=== PATIENT | male | born 1970 | race Caucasian/White ===

== ENCOUNTER → 2019-12-02 14:15 | Outpatient (CLI) | payer MEDICAID, SELFPAY ==
[2019-12-02 14:24] LABS: Basophils # 0.1 K/mm3 (0-0.2); Basophils % 0.6 % (0.1-2.0); Eosinophils # 0.2 K/mm3 (0.0-0.4); Eosinophils % 2.9 % (0.1-12.0); Hematocrit 55.4 % (42.0-52.0); Lymphocytes # 2.5 K/mm3 (0.7-4.5); Lymphocytes % 33.6 % (10-50); Mean Corpuscular HGB Conc 33.7 g/dL (31.8-35.4); Mean Corpuscular Hemoglobin 32.6 pg (27.0-31.2); Mean Corpuscular Volume 96.9 fl (80-94); Mean Platelet Volume 8.4 fl (7.4-10.4); Monocytes # 0.6 K/mm3 (0.1-1.0); Monocytes % 7.5 % (1.7-9.3); Neutrophils # 4.1 K/mm3 (1.8-7.8); Neutrophils % 55.3 % (37.0-80.0); Platelet Count 218 K/mm3 (142-424); Red Blood Count 5.72 M/mm3 (4.60-6.20); Red Cell Distribution Width 14.5 % (11.5-17.5); White Blood Count 7.4 K/mm3 (4.8-10.8)
[2019-12-02 14:26] LABS: Hemoglobin 18.7 g/dL (14.1-18.0)
[2019-12-02 14:27] LABS: Chol/HDL Ratio 6.6 (1-3.5); Cholesterol 236 mg/dl (140-200); HDL Cholesterol 36 mg/dl (40-60); Triglycerides 269 mg/dl (30-150); VLDL Cholesterol 54 mg/dL (0-40)
[2019-12-02 14:38] LABS: Direct LDL Cholesterol 156.43 mg/dL (100-129)
[2019-12-02 14:58] LABS: Prostate Specific Ag Screen 0.7 ng/ml (0.0-4.0)
[2019-12-07 20:01] LABS: Testosterone, Total, LC/MS 810.3 ng/dL (264.0-916.0)
== END ==
PROVIDERS: Visit Provider Family Medicine
DX: E34.9 Endocrine disorder, unspecified (principal)
CPT/HCPCS: 80061; 84402; 84403; 85025; G0103

== ENCOUNTER → 2020-04-26 14:32 | Outpatient (CLI) | payer MEDICAID, SELFPAY ==
--- NOTE | 2020-04-26 14:32 | MR_ITS ---
PROCEDURE: MR THORACIC SPINE WO CON CLINICAL INDICATION: back pain MID TO UPPER BACK PAIN BETWEEN SHOULDER BLADES X6 MONTHS. NO PRIOR COMPARISON: No exams were available for comparison TECHNIQUE: Routine multiplanar multi echo sequences are performed without gadolinium enhancement. FINDINGS: There is normal alignment. No fracture or malalignment. No bony destructive process. Mild degenerative disc disease is present with decrease in the disc spaces and disc desiccation. There is endplate irregularity T10-T11 and T12. At T6-T7, there is a small lobular disc osteophyte complex which is right and left paracentral more prominent in the left paracentral region with some minimal impingement upon the cord anteriorly on the left which is causing minimal cord flattening. Minimal bulging disc/osteophyte noted at T7-T8 and T8-T9 slightly eccentric on the left. Minimal bulging disc at T9-T10. Mild multilevel facet and costovertebral hypertrophic changes are present. No extruded herniated disc is apparent. On the pipe out worker view, there is noted to be discogenic changes at C5-C6 and C6-C7 with suggestion of some minimal cord impingement which may be better demonstrated with cervical spine MRI. IMPRESSION: Mild multilevel thoracic spondylosis. Please see above for detailed description. No extruded herniated disc or fracture apparent. Dictated by: Olegario Camarillo MD 04/29/2020 12:12 Olegario Camarillo MD in [place] 04/29/2020 12:12
== END ==
PROVIDERS: PCP Family Medicine; Visit Provider Family Medicine
DX: M54.9 Dorsalgia, unspecified (principal)
CPT/HCPCS: 72146

== ENCOUNTER → 2020-05-16 07:34 | Outpatient (CLI) | payer MEDICAID, SELFPAY ==
--- NOTE | 2020-05-16 07:34 | MR_ITS ---
PROCEDURE: MR CERVICAL SPINE WO CON CLINICAL INDICATION: neck pain Pt c/o neck pain with bilateral upper extremity pain, numbness and tingling. COMPARISON: No exams were available for comparison TECHNIQUE: Standard multiplanar multiecho sequences are performed without contrast. 3-D MIP and myelographic images are also rendered and reviewed FINDINGS: There is normal alignment. The craniocervical junction has an unremarkable appearance. C2-C3: Unremarkable. C3-C4: Unremarkable disc space. There is prominent posterior longitudinal ligament with narrowing of the canal at 9 mm without flattening of the cord. C4-C5: Mild prominence of the posterior longitudinal ligament with narrowing of the canal without cord flattening. C5-C6: Degenerative disc disease with bulging disc. There is canal stenosis with mild impingement and flattening of the cord anteriorly with canal measuring 9 mm. There is left sided lateral recess and foraminal narrowing. C6-C7: Degenerative disc disease with bulging disc with canal stenosis of 8 mm with mild flattening of the cord anteriorly with bilateral lateral recess and foraminal narrowing. C7-T1: Unremarkable. No extruded herniated disc. The spinal cord has an unremarkable appearance. IMPRESSION: 1. Prominent posterior longitudinal ligament at C3-C4 and C4-C5 with canal stenosis but no cord impingement or flattening. 2. C5-C6: Degenerative disc disease with bulging disc. There is canal stenosis with mild impingement and flattening of the cord anteriorly with canal measuring 9 mm. There is left sided lateral recess and foraminal narrowing. 3. C6-C7: Degenerative disc disease with bulging disc with canal stenosis of 8 mm with mild flattening of the cord anteriorly with bilateral lateral recess and foraminal narrowing. 4. No extruded herniated disc evident. Dictated by: Olegario Camarillo MD 05/17/2020 13:58 Olegario Camarillo MD in [place] 05/17/2020 13:58
== END ==
PROVIDERS: PCP Family Medicine; Visit Provider Family Medicine
DX: M54.2 Cervicalgia (principal)
CPT/HCPCS: 72141; 76376

== ENCOUNTER → 2020-06-12 15:07 | Outpatient (CLI) | payer MEDICAID, SELFPAY ==
[2020-06-12 15:17] LABS: Basophils % 0.7 % (0.1-2.0); Eosinophils # 0.2 K/mm3 (0.0-0.4); Eosinophils % 3.6 % (0.1-12.0); Lymphocytes % 32.9 % (10-50); Mean Corpuscular HGB Conc 32.4 g/dL (31.8-35.4); Mean Corpuscular Hemoglobin 31.3 pg (27.0-31.2); Mean Corpuscular Volume 96.8 fl (80-94); Mean Platelet Volume 9.2 fl (7.4-10.4); Monocytes # 0.4 K/mm3 (0.1-1.0); Monocytes % 5.7 % (1.7-9.3); Neutrophils # 3.5 K/mm3 (1.8-7.8); Neutrophils % 57.1 % (37.0-80.0); Platelet Count 253 K/mm3 (142-424); Red Blood Count 5.99 M/mm3 (4.60-6.20); Red Cell Distribution Width 14.3 % (11.5-17.5); White Blood Count 6.1 K/mm3 (4.8-10.8)
[2020-06-12 15:19] LABS: Hemoglobin 18.8 g/dL (14.1-18.0)
[2020-06-12 15:23] LABS: Alanine Aminotransferase 47 U/L (12-78); Albumin Level 4.5 g/dl (3.5-5.0); Albumin/Globulin Ratio 1.5 (1.1-1.8); Alkaline Phosphatase 98 U/L (38-126); Anion Gap 9.6 mEq/L (5-15); Aspartate Amino Transferase 35 U/L (17-59); Bilirubin,Total 0.5 mg/dl (0.2-1.3); Blood Urea Nitrogen 13 mg/dl (9-20); Calcium 10.2 mg/dl (8.4-10.2); Carbon Dioxide 30 mmol/L (22.0-30.0); Chloride 105 mmol/L (98-107); Chol/HDL Ratio 6.2 (1-3.5); Cholesterol 266 mg/dl (140-200); Estimated Glomerular Filt Rate 71 ml/min (>60); GFR (African American) 86 ML/MIN (>60); Globulin 3.1 g/dL (1.3-3.2); Glucose 96 mg/dl (74-100); HDL Cholesterol 43 mg/dl (40-60); Potassium 4.6 mmoL/L (3.5-5.1); Sodium 140 mmol/L (136-145); Total Protein,Serum 7.6 g/dl (6.3-8.2); Triglycerides 351 mg/dl (30-150); VLDL Cholesterol 70 mg/dL (0-40)
[2020-06-12 15:34] LABS: Direct LDL Cholesterol 185.54 mg/dL (100-129)
[2020-06-12 16:39] LABS: Thyroid Stimulating Hormone 2.11 uIU/mL (0.465-4.68)
[2020-06-20 03:08] LABS: Testosterone, Total, LC/MS 49.3 ng/dL (264.0-916.0); Testosterone,Free 1.7 pg/mL (6.8-21.5)
== END ==
PROVIDERS: Visit Provider Family Medicine
DX: E34.9 Endocrine disorder, unspecified (principal); E78.5 Hyperlipidemia, unspecified
CPT/HCPCS: 80053; 80061; 84402; 84403; 84443; 85025

== ENCOUNTER → 2020-06-28 12:16 | Outpatient (POV) | payer MEDICAID, SELFPAY ==
[2020-06-28 12:36] VITALS: BP 142/74; PULSE 74; RESP 18; O2SAT 99; BMI 35.5
--- NOTE | 2020-06-28 13:16 | HMH.PMCON ---
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 twice daily. We will see the patient back in 1 month if he has not had any relief of his symptomology we will move forward with potential epidural steroid injections. Dr. Gonzales has reviewed this note and agrees with this plan of care. This note was dictated using voice recognition software and may contain errors or omissions HPI - Data of Consult Consult date: 06/28/20 Requesting Physician: Janis Morrell APRN Primary Care Provider: Ricardo Alvarado MD - Consult Narrative Reason for consult: Back pain History of present illness: Mr. Collier is a 50 year old male who presents today for consultation regards to his thoracic back pain at this time he does not have any back pain. He rates his pain a 1 out of 10. He states that he has streaks of pain. Patient does have a thoracic MRI with pathology showing bulging disc and osteophyte formation. Patient has not tried any anti-inflammatory medications or physical therapy. Patient has had lumbar back surgery in the past. We discussed anti-inflammatory medications and potential epidural steroid injections. Patient does work with [employer] which increases his pain. CC: Janis Morrell APRN [facility] History I have reviewed the patient's past medical history: Yes Medical History: Reports:: Hypertension Denies:: Cancer, Diabetes Mellitus Type 1, Diabetes Mellitus Type 2, MRSA *Have you ever received a pneumonia vaccine?: Yes *Have you received a flu vaccine this season?: Yes Other Medical History: Reports: Arthritis Amputation: No Fractures: No - *Social History Smoking Status: Never smoker Alcohol Intake: never Substance Use Type: denies use *Occupational Status:: employed Housing: house Household Members: spouse *Travel in the last 8 weeks: None Family Hx:: Unable to obtain Review of Systems - Review of Systems ROS General: no recent weight change, no fever, no sleep disturbances Respiratory: no cough, no shortness of air, no recurring pulmonary infections Cardiovascular/Peripheral Vascular: No chest pain, No palpitations, no edema, no shortness of breath. Gastrointestinal: no new onset incontinence, normal bowel movements reported Genitourinary: no new onset incontinence Musculoskeletal: Back pain Psychiatric: normal mood/ affect Neurological: [denies new onset weakness in extremities], [denies new onset balance issues] Meds Home Medications Medication Instructions Recorded Confirmed Type syringe with needle 6 mL See Rx Instructions .ROUTE 06/12/20 06/25/20 Rx .MEDSUPPLY #10 each atorvastatin 10 mg tablet 10 mg PO QHS #90 tab 06/21/20 06/25/20 Rx testosterone cypionate 200 mg/mL 200 mg IM Q15D #10 ml 06/21/20 06/25/20 Rx intramuscular oil aspirin 81 mg tablet,delayed 81 mg PO DAILY 06/25/20 06/25/20 History release fluticasone propionate 50 1 spray INTRANASAL DAILY #16 g 06/25/20 06/25/20 Rx mcg/actuation nasal spray,suspension montelukast 10 mg tablet 10 mg PO DAILY #30 tab 06/25/20 06/25/20 Rx Diclofenac Sodium [Diclofenac 75mg 75 mg PO BID #60 tab 06/28/20 Rx Tab] Allergies Allergy/AdvReac Type Severity Reaction Status Date / Time No Known Allergies Allergy Unverified 06/25/20 14:34 Objective Vital signs: Pulse Resp BP Pulse Ox 74 18 142/74 H 99 06/28/20 12:36 06/28/20 12:36 06/28/20 1
== END ==
PROVIDERS: PCP Family Medicine; Visit Provider Clinical Nurse Specialist Family Health
DX: M47.814 Spondylosis without myelopathy or radiculopathy, thoracic region (principal)
CPT/HCPCS: 99202; G0463

== ENCOUNTER → 2020-07-26 13:03 | Outpatient (POV) | payer MEDICAID, SELFPAY ==
[2020-07-26 13:59] VITALS: BP 142/77; PULSE 82; RESP 18; O2SAT 98; BMI 35.5
--- NOTE | 2020-07-26 14:13 | P.CONS_ITS ---
[facility] Pain Management SOAP Note Subjective:: Patient is a pleasant 50-year-old white male who presents today for follow-up. Patient was started on diclofenac 75 mg 1 p.o. twice daily at his last visit. He is doing extremely well rating his pain a 0 out of 10. Patient denies any side effects to the medication. Patient and I discussed a follow-up in 6 months he is agreeable. ROS General: no recent weight change, no fever, no sleep disturbances Respiratory: no cough, no shortness of air, no recurring pulmonary infections Cardiovascular/Peripheral Vascular: No chest pain, No palpitations, no edema, no shortness of breath. Gastrointestinal: no new onset incontinence, normal bowel movements reported Genitourinary: no new onset incontinence Musculoskeletal: Back pain at times Psychiatric: normal mood/ affect Neurological: [denies new onset weakness in extremities], [denies new onset balance issues] Objective:: Physical Exam General: Alert and oriented x3, no acute distress, pleasant and cooperative, [on room air] Lungs: Resps E/U, Symmetrical chest expansion, Eyes: PERRL Musculoskeletal: Flexion and extension of thoracic spine somewhat guarded secondary to pain, deep tendon reflexes normal, strength in upper and lower extremities [5/5], normal gait noted Neurological: speech clear, director game equal, no gross sensory deficits Assessment:: Degenerative disc disease thoracic spine, arthritis Plan:: We will set the patient up for a follow-up in 6 months. We will continue his diclofenac 75 mg 1 p.o. twice daily as needed. Patient has been instructed to call the office if he has any issues prior to his next appointment. Dr. Gonzales has reviewed this note and agrees with this plan of care. This note was dictated using voice recognition software and may contain errors or omissions [facility] History I have reviewed the patient's past medical history: Yes Medical History: Reports:: Hypertension Denies:: Cancer, Diabetes Mellitus Type 1, Diabetes Mellitus Type 2, MRSA *Have you ever received a pneumonia vaccine?: Yes *Have you received a flu vaccine this season?: Yes Other Medical History: Reports: Arthritis Amputation: No Fractures: No - *Social History Smoking Status: Never smoker Alcohol Intake: never Substance Use Type: denies use *Occupational Status:: other Housing: house Household Members: spouse *Travel in the last 8 weeks: None Family Hx:: Unable to obtain
== END ==
PROVIDERS: Visit Provider Clinical Nurse Specialist Family Health
DX: M51.34 Other intervertebral disc degeneration, thoracic region (principal); M19.90 Unspecified osteoarthritis, unspecified site
CPT/HCPCS: 99212; G0463

== ENCOUNTER → 2021-01-24 09:39 | Outpatient (POV) | payer MEDICAID, SELFPAY ==
[2021-01-24 09:52] VITALS: BP 147/73; PULSE 65; RESP 18; O2SAT 98; BMI 34.2
--- NOTE | 2021-01-24 10:04 | P.CONS_ITS ---
[facility] Pain Management SOAP Note Subjective:: Patient is a pleasant 50-year-old white male who presents today for medication refills. He has been treated for degenerative disc disease thoracic spine and arthritis. He has managed with diclofenac 75 mg 1 tablet p.o. twice daily. This is working well for him. Patient rates his pain a 1 or 2 out of 10. He says that he is doing well overall and is having less flareups with diclofenac. He denies any side effects to the medication. Review of Systems General: No recent weight changes, no fever, no sleep disturbances Respiratory: No cough, no shortness of air, no recurring pulmonary infections Cardiovascular/peripheral vascular: No chest pain, no palpitations, no edema, no shortness of breath Gastrointestinal: No new onset incontinence, normal bowel movements reported Genitourinary: No new onset incontinence Musculoskeletal: Mid back pain intermittent Psychiatric: [Normal mood/affect] Neurological: [Denies weakness in extremities], [denies balance issues] Objective:: Physical exam General: Alert and oriented x3, no acute distress, pleasant and cooperative, [on room air] Lungs: Respirations even and unlabored, symmetrical chest expansion Eyes: PERRL Musculoskeletal: Flexion and extension of thoracic [spine] somewhat guarded secondary to pain, strength in upper and lower extremities [5/5], [antalgic gait noted] Neurological: Speech clear, [electrical prospector 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 twice daily. He has been advised to use caution with this medication. He denies any renal insufficiency or any history of bleeding. Patient has been advised as well that this is not a medication to use for long-term use. We will order the patient compounding cream to see if this also helps with his symptoms so that he may be able to wean on his diclofenac. We will give him 6 months of medication plan to see him back in the clinic in 6 months for reevaluation of symptoms. Patient has been instructed to contact the clinic if he has any concerns before his next appointment. Risks and benefits of the medication have been explained in detail to the patient. The patient has been advised to consult with his/her primary care provider and pharmacist regarding drug-drug interaction of medications currently prescribed. [facility] History Medical History: Reports:: Hypertension Denies:: Cancer, Diabetes Mellitus Type 1, Diabetes Mellitus Type 2, MRSA *Have you ever received a pneumonia vaccine?: No *Have you received a flu vaccine this season?: No Other Medical History: Reports: Arthritis Amputation: No Fractures: No - *Social History Smoking Status: Never smoker Alcohol Intake: never Substance Use Type: denies use *Occupational Status:: employed Housing: house Household Members: spouse *Travel in the last 8 weeks: None Family Hx:: Unable to obtain
== END ==
PROVIDERS: Visit Provider Clinical Nurse Specialist Family Health
DX: M51.34 Other intervertebral disc degeneration, thoracic region (principal); M19.90 Unspecified osteoarthritis, unspecified site
CPT/HCPCS: 99212; G0463

== ENCOUNTER → 2021-07-25 08:01 | Outpatient (POV) | payer MEDICAID, SELFPAY ==
[2021-07-25 08:14] VITALS: BP 142/62; PULSE 75; RESP 20; O2SAT 98; BMI 34.8
--- NOTE | 2021-07-25 08:42 | P.CONS_ITS ---
[facility] Pain Management SOAP Note Subjective:: Patient is a pleasant 51-year-old male who is here for medication refill and follow-up. Patient is currently being treated for degenerative disc disease of the thoracic spine and arthritis. Patient is being managed with diclofenac 75 mg twice a day. Patient denies any side effects from the medications. Patient denies any changes to the location and type of pain. Patient states that this is adequately helping manage his pain. Rates pain as 0 out of 10. [facility] number [id number] with an active morphine equivalent 0. Drug screens have been reviewed and appropriate. General: No recent weight changes, no fever, no sleep disturbances Respiratory: No cough, no shortness of air, no recurring pulmonary infections Cardiovascular/peripheral vascular: No chest pain, no palpitations, no edema, no shortness of breath Gastrointestinal: No new onset incontinence, normal bowel movements reported Genitourinary: No new onset incontinence Musculoskeletal: Low back pain Psychiatric: [Normal mood/affect] Neurological: [Denies weakness in extremities], [denies balance issues] Objective:: General: Alert and oriented x3, no acute distress, pleasant and cooperative, [on room air] Lungs: Respirations even and unlabored, symmetrical chest expansion Eyes: PERRL Musculoskeletal: Flexion and extension of lumbar [spine] somewhat guarded secondary to pain, [antalgic gait noted] Neurological: Speech clear, no gross sensory deficit Assessment:: Degenerative disc disease of the thoracic spine and arthritis Plan:: We will continue the patient's diclofenac 75 mg twice a day. We will provide the patient with 1 year of refills. We would like to see the patient back in 1 year for follow-up and reevaluation of chronic pain syndrome. Patient has been instructed to contact the clinic with any concerns before the next appointment. Dr. Gonzales has reviewed this note and agrees with this plan of care. This note was dictated using voice recognition software and make contain errors or omissions. [facility] History Medical History: Reports:: Hypertension Denies:: Cancer, Diabetes Mellitus Type 1, Diabetes Mellitus Type 2, MRSA *Have you ever received a pneumonia vaccine?: No *Have you received a flu vaccine this season?: No Other Medical History: Reports: Arthritis Amputation: No Fractures: No - *Social History Smoking Status: Never smoker Alcohol Intake: never Substance Use Type: denies use *Occupational Status:: employed Housing: house Household Members: spouse *Travel in the last 8 weeks: None Family Hx:: Unable to obtain
== END ==
PROVIDERS: Visit Provider Student in an Organized Health Care Education/Training Program
DX: M51.34 Other intervertebral disc degeneration, thoracic region (principal); M19.90 Unspecified osteoarthritis, unspecified site
CPT/HCPCS: 99212; G0463

== ENCOUNTER → 2021-10-29 14:44 | Outpatient (CLI) | payer MEDICAID, SELFPAY | PROVIDERS: Visit Provider Student in an Organized Health Care Education/Training Program | DX: G47.33 Obstructive sleep apnea (adult) (pediatric) (principal); R06.83 Snoring | CPT/HCPCS: 95806 ==

== ENCOUNTER → 2022-07-23 09:12 | Outpatient (POV) | payer MEDICAID, SELFPAY ==
[2022-07-23 09:24] VITALS: BP 144/73; PULSE 74; RESP 18; BMI 32.0
--- NOTE | 2022-07-23 09:51 | EXP.PAIN.SOA ---
[facility] Pain Management SOAP Note Subjective:: Patient is a pleasant 52-year-old male who presents today for follow-up and medication refill. We are currently treating the patient for degenerative disc disease of thoracic spine and arthritis. Today he rates his pain a 0 out of 10. Patient denies any new trauma or injury. Patient denies any change location or type of pain he experiences. Patient is currently managed with diclofenac 75 mg twice a day. Patient denies any side effects from this medication. He states this medication does help manage his arthritis symptoms. He is requesting a refill at today's visit. Patient is also prescribed compounding cream that provides additional relief. Patient's Hermann is [id number]. Its been reviewed and appropriate. Review of Systems: General: No recent weight changes, no fever, no sleep disturbances Respiratory: No cough, no shortness of air, no recurring pulmonary infections Cardiovascular/peripheral vascular: No chest pain, no palpitations, no edema, no shortness of breath Gastrointestinal: No new onset incontinence, normal bowel movements reported Genitourinary: No new onset incontinence Musculoskeletal: Generalized arthritis, mid back pain Psychiatric: [Normal mood/affect] Neurological: [Denies weakness in extremities], [denies balance issues] Objective:: Physical Exam: General: Alert and oriented x3, no acute distress, pleasant and cooperative Lungs: Respirations even and unlabored, symmetrical chest expansion Eyes: PERRL Musculoskeletal: Flexion and extension of thoracic [spine] somewhat guarded secondary to pain, [antalgic gait noted] Neurological: Speech clear, no gross sensory deficit ORT score updated with low risk Oswestry index Pain intensity?pain comes and goes and is very mild Personal care I would not have to change my way of washing her dressing in order to avoid pain Lifting I can lift heavy weights without extra pain Walking I have no pain when walking Sitting pain prevents me from sitting more than 1 hour Standing I can stand as long as I want without pain Sleeping I get pain in bed but it does not prevent me from sleeping well Social life?social life is normal and gives me no extra pain Traveling to get some pain when traveling but none of my usual forms of travel makes it worse Changing degree of pain my pain fluctuates but overall is definitely better Score 5 Assessment:: Degenerative disc disease of thoracic spine, arthritis Plan:: Patient is doing well with his current medication regimen. I will refill his diclofenac 75 mg twice daily and provide a 6-month supply of this medication. Patient will return to clinic in 6 months for reevaluation of symptoms, medication refill and follow-up. Patient has been instructed to contact the clinic with any concerns before the next appointment. Dr. Gonzales has reviewed this note and agrees with this plan of care. This note was dictated using voice recognition software and make contain errors or omissions. [facility] Disclaimer: The information contained in this section may have been updated after the patient was seen, as this information can be updated by other users. Social History Smoking Status: Never smoker alcohol intake: current substance use type: denies use current occupational status: employed Travel in the last 8 weeks: None household members: spouse housing: house current occupational exposures/hazards: No caffeine: No
== END | disposition home or self-care (01) ==
PROVIDERS: PCP Nurse Practitioner; Visit Provider Nurse Practitioner Family
DX: M51.34 Other intervertebral disc degeneration, thoracic region (principal); M19.90 Unspecified osteoarthritis, unspecified site
CPT/HCPCS: 99212; G0463

== ENCOUNTER 2022-08-15 13:53 | Emergency (ER) | payer MEDICAID, SELFPAY ==
[2022-08-15 14:03] VITALS: BP 144/79; PULSE 78; RESP 18; TEMP 36.5; O2SAT 98; BMI 31.4
--- NOTE | 2022-08-15 14:08 | PC.NURSE ---
pt ambulated to bathroom independently at this time
--- NOTE | 2022-08-15 14:58 | PC.NURSE ---
Pt updated on plan of care.
--- NOTE | 2022-08-15 15:03 | HMH.EDGENADL ---
Discharge Plan Disposition Patient Disposition: Home, Self-Care Condition: Good Prescriptions Prescriptions: New methocarbamol 750 mg tablet 750 mg PO Q8H PRN (Reason: pain) Qty: 20 0RF prednisone 50 mg tablet 50 mg PO DAILY 5 Days Qty: 5 0RF No Action esomeprazole magnesium 20 mg capsule,delayed release(DR/EC) 20 mg PO DAILY diclofenac sodium 75 MG tablet,delayed release (DR/EC) 75 mg PO BID Qty: 60 5RF Referrals Follow up/Referrals: Janel Alvarez APRN [Primary Care Provider] - See instructions Activity Restrictions/Add. Instructions Additional Instructions/Restrictions: You were evaluated in the emergency department today. Please contact your pain management clinic and let them know that you were evaluated here. Please also contact your primary care provider. They may want to potentially order an outpatient MRI. Return to the emergency department for any new or worsening symptoms. 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 Complete the full course of steroids as prescribed. Clinical Impressions Clinical Impression: Lumbar radiculopathy, Acute exacerbation of chronic low back pain Instructions Patient Instructions: DI for Low Back Pain, DI for Back Pain With Sciatica Discharge ED Provider: Monica Vasquez General Adult HPI General Chief complaint: Back Pain/Injury Stated complaint: back pain, no accident Time Seen by Provider: 08/15/22 14:05 Mode of Arrival: Ambulatory Source of Information: Patient Limitations: No Limitations Description of Symptoms (Recalled from ER Triage Doc. by RN): Presents with sudden left lower back pain that started while working out yesterday with new onset of numbness radiating to LLE. Denies urinary/stool incontinence. 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 Hx of lumbar surgery d/t herniated disc. History of Present Illness HPI narrative: This patient is a 52-year-old male with a history of lumbar back pain and degenerative disc disease status post surgical intervention years ago presenting to the emergency department for evaluation with concern for low back pain radiating down his left leg. He states that this acutely worsened yesterday when he was working out. He believes that he may have pulled a muscle. He tried supportive management at home and also sees pain management, however his symptoms are not under control. He also has new numbness on the anterior aspect of his left leg. He denies any saddle anesthesia, incontinence, retention, or other concerns. He is still able to walk. Given his new numbness, he decided to come in for evaluation. No recent fevers or infectious symptoms, and no intra-abdominal or urinary symptoms noted. Related Data Home Medications Medication Instructions Recorded Confirmed esomeprazole magnesium 20 mg 20 mg PO DAILY GERD 10/23/21 07/23/22 capsule,delayed release Previous Rx's Medication Instructions Recorded diclofenac sodium 75 mg 75 mg PO BID . #60 tabs 07/23/22 tablet,delayed release methocarbamol 750 mg tablet 750 mg PO Q8H PRN pain #20 tabs 08/15/22 prednisone 50 mg tablet 50 mg PO DAILY 5 days #5 tabs 08/15/22 Allergies Allergy/AdvReac Type Severity Reaction Status Date / Time No Known Allergies Allergy Verified 10/23/21 15:56 [facility] Disclaimer: The information contained in this section may have been updated after the patient was seen, as this information can be updated by other users. Social History Smoking Status: Never smoker alcohol intake: current substance use type: denies use current occupational status: employed Travel in the last 8 weeks: None household members: spouse housing: house current occupational exposures/hazards: No caffeine: No ROS Obtained: Yes All systems reviewed & no additional complaints except as documented 14 point review of systems obtained and negative except as me
[2022-08-15 15:26] VITALS: BP 144/79; PULSE 78; RESP 18; TEMP 36.5; O2SAT 98
== END 2022-08-15 15:28 | disposition home or self-care (01) ==
PROVIDERS: Emergency Provider Emergency Medicine; PCP Nurse Practitioner
DX: M54.16 Radiculopathy, lumbar region (principal)
CPT/HCPCS: 96372; 99283; 99284

== ENCOUNTER → 2023-02-06 08:52 | Outpatient (POV) | payer MEDICAID, SELFPAY ==
[2023-02-06 10:18] VITALS: BP 157/93; PULSE 84; RESP 18; O2SAT 96; BMI 33.2
--- NOTE | 2023-02-06 10:32 | A.OFFVIS_ITS ---
[facility] Pain Management SOAP Note Subjective:: This patient is a very pleasant 52-year-old male that returns our clinic today complaining of low back pain he describes as constant, dull, sharp, stabbing as well as left hip and leg radicular symptoms to the foot. Patient was last seen in our clinic on 07/23/2022. Since that visit he lifted a heavy log and felt a sharp stabbing pain down his left hip and leg. He rates his pain today /10. Patient has been taking oral medications diclofenac 75 mg 1 p.o. twice daily. Also using compounded pain cream. Both of these come from our office. Patient had lumbar discectomy and laminectomy in 2016. He has been doing quite well since then. I recommend updating the patient's lumbar MRI to further discern pathology. I discussed potential need for lumbar epidural steroid injections. Patient's Hermann #[id number] has been reviewed and appropriate. Objective:: Patient is awake alert [place] x3. No acute distress. Flexion-extension lumbar spine somewhat guarded secondary to pain. Deep tendon reflexes upper and lower extremities normal. Motor strength upper and lower extremities normal. There is no gross sensory deficit. Gait is normal. Assessment:: Degenerative disc lumbar spine multilevels. Lumbar radiculopathy. Lumbar postlaminectomy syndrome. Plan:: Discussed in detail with the patient regarding treatment options. We both agree to update lumbar imaging. Patient states he will require Valium due to claustrophobia tendencies with MRI. We will call in Valium 10 mg x 2 to take 45 minutes prior to the MRI. We will see the patient back following MRI to discuss pathology and treatment options. [facility] Disclaimer: The information contained in this section may have been updated after the patient was seen, as this information can be updated by other users. Social History Smoking Status: Never smoker alcohol intake: current substance use type: denies use current occupational status: employed Travel in the last 8 weeks: None household members: spouse housing: house current occupational exposures/hazards: No caffeine: No
== END | disposition home or self-care (01) ==
PROVIDERS: PCP Nurse Practitioner; Visit Provider Nurse Anesthetist, Certified Registered
DX: M51.16 Intervertebral disc disorders with radiculopathy, lumbar region (principal); M96.1 Postlaminectomy syndrome, not elsewhere classified
CPT/HCPCS: 99212; G0463

== ENCOUNTER → 2023-03-02 14:45 | Outpatient (POV) | payer MEDICAID, SELFPAY ==
[2023-03-02 15:19] VITALS: BP 166/94; PULSE 82; RESP 18; O2SAT 96; BMI 33.5
--- NOTE | 2023-03-02 15:23 | EXP.PAIN.SOA ---
[facility] SOAP Note Subjective:: The patient is a very pleasant 52-year-old male that comes our clinic today for review of insurance denial regarding request for updated lumbar imaging/MRI. Patient describes his low back pain as constant, dull, aching. Patient also complains of left hip and leg radicular symptoms to the foot. Patient rates his pain 7/10. 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 Patient had lumbar discectomy/laminectomy in 2016. He has been doing quite well since surgery until lifting a heavy log and feeling a sharp stabbing pain in the low left lumbar. Pain has been down the left hip and leg to the foot since. He continues taking diclofenac 75 mg 1 p.o. twice daily. After further review patient had received chiropractic treatment at Dr. Batista office in [facility]. This was for the month of October, November and December 2022. Patient reports minimal improvement after attending career and guidance counselor. However, pain returned upon completion of the 3-month cycle of career and guidance counselor. I think it is reasonable to update lumbar imaging. This will help us further discern pathology and intervention. Objective:: Patient is awake alert [place] x3. In no acute distress. Flexion-extension lumbar spine somewhat guarded secondary to pain. Deep tendon reflexes upper and lower extremities normal. Motor strength upper and lower extremities normal. There is no gross sensory deficit. Gait is normal. Assessment:: Degenerative disc lumbar spine multilevels. Lumbar radiculopathy. Lumbar postlaminectomy syndrome. Plan:: We will resubmit for insurance approval lumbar MRI. [facility] Disclaimer: The information contained in this section may have been updated after the patient was seen, as this information can be updated by other users. Social History Smoking Status: Never smoker alcohol intake: current substance use type: denies use current occupational status: employed Travel in the last 8 weeks: None household members: spouse housing: house current occupational exposures/hazards: No caffeine: No
== END ==
PROVIDERS: PCP Nurse Practitioner; Visit Provider Nurse Anesthetist, Certified Registered
DX: M51.16 Intervertebral disc disorders with radiculopathy, lumbar region (principal); M96.1 Postlaminectomy syndrome, not elsewhere classified
CPT/HCPCS: 99212; G0463

== ENCOUNTER → 2023-03-24 14:27 | Outpatient (CLI) | payer MEDICAID, SELFPAY ==
--- NOTE | 2023-03-24 14:32 | MR_ITS ---
FINAL REPORT CLINICAL HISTORY: LOW BACK PAIN. LEFT LEG PAIN. PRIOR HX BACK SURGERY IN 2016 COMPARISON: None FINDINGS: Multiplanar MR imaging of the lumbar spine was performed without contrast. On the sagittal T2-weighted images, there is abnormal decreased signal in the L2-3 through L5-S1 lumbar discs. There is loss of height of the L4-5 disc with endplate degenerative change present. The vertebrae are of normal height. The vertebral alignment is normal. Axial images were not obtained through the L1-2 level. L2-3: There is mild bilateral facet osteoarthropathy. There is no significant canal stenosis or neural foraminal narrowing. L3-4: There is a broad-based disc bulge which mildly indents the thecal sac and produces mild to moderate central canal stenosis. L4-5: An annular bulge is present with a right posterolateral disc protrusion producing moderate right and mild to moderate left neural foraminal narrowing. L5-S1: An annular bulge is present with bilateral facet osteoarthropathy. There is mild to moderate bilateral neural foraminal narrowing. IMPRESSION: Multilevel lumbar disc disease, most prominent at the L3-4 level with mild to moderate canal stenosis and at the L4-5 level with moderate right neuroforaminal narrowing. Reviewed, Interpreted and Dictated by Charles Ocasio MD Transcribed by Cori Nunes Authenticated and [facility]
--- NOTE | 2023-03-24 14:42 | XR_ITS ---
FINAL REPORT CLINICAL HISTORY: PRIOR HISTORY METAL IN EYE. CLEARANCE FOR MRI FINDINGS: ORBITS Look up and look down views were obtained. No fracture is identified. The sinuses are clear. No foreign body is identified. IMPRESSION: No acute process. Reviewed, Interpreted and Dictated by Charles Ocasio MD Transcribed by Shaggy Quintana Authenticated and . [facility]
== END ==
PROVIDERS: PCP Nurse Practitioner; Visit Provider Nurse Practitioner Family
DX: M54.9 Dorsalgia, unspecified (principal)
CPT/HCPCS: 70200; 72148; 76376

== ENCOUNTER → 2023-04-06 14:24 | Outpatient (POV) | payer MEDICAID, SELFPAY ==
--- NOTE | 2023-04-06 14:59 | EXP.PAIN.SOA ---
[facility] Pain Management SOAP Note Subjective:: Patient is a pleasant 53-year-old male who presents today for follow-up of his lumbar MRI. We are currently treating the patient for degenerative disc disease of lumbar spine with lumbar radiculopathy symptoms, lumbar postlaminectomy syndrome. Today he rates his pain a 1 out of 10. Patient states that he has not gotten up and started to move around. He does state the pain worsens the longer he is up on his feet. He does describe this as a toothache like sensation. Patient does state he continues to have significant pain and numbness that does run down his entire left leg. Patient states the pain interferes with his ability to perform activities of daily living such as cooking and cleaning. Patient has tried and failed conservative therapy such as Tylenol and ibuprofen, heat and ice, topicals, chiropractor therapy for more than 15 visits and at home exercising and stretching for longer than 12 weeks. Patient was previously recommended for an epidural however this was denied by insurance for not having updated imaging. Patient is currently managed with diclofenac 75 mg twice a day from her office. Patient denies any side effects from this medication and is requesting a refill. He is also prescribed compounding cream. His Hermann has been reviewed and is appropriate. Review of Systems: General: No recent weight changes, no fever, no sleep disturbances Respiratory: No cough, no shortness of air, no recurring pulmonary infections Cardiovascular/peripheral vascular: No chest pain, no palpitations, no edema, no shortness of breath Gastrointestinal: No new onset incontinence, normal bowel movements reported Genitourinary: No new onset incontinence Musculoskeletal: Low back pain, left leg pain Psychiatric: [Normal mood/affect] Neurological: [Denies weakness in extremities], [denies balance issues] Objective:: Physical Exam: General: Alert and oriented x3, no acute distress, pleasant and cooperative Lungs: Respirations even and unlabored, symmetrical chest expansion Eyes: PERRL Musculoskeletal: Flexion and extension of lumbar [spine] somewhat guarded secondary to pain, [antalgic gait noted] positive left leg raise with decreased sensation to light touch and decreased reflexes Neurological: Speech clear, no gross sensory deficit Assessment:: Degenerative disc disease of lumbar spine with lumbar radiculopathy symptoms, lumbar spinal stenosis, lumbar postlaminectomy syndrome Plan:: Patient continues to have worsening pain in his low back with radiating symptoms down his entire left leg. Patient did have limited range of motion of his lumbar spine with a positive left leg raise and decreased sensation to light touch and decreased reflexes. I have discussed with the patient that he may benefit from a left transforaminal epidural steroid injection. Risk and benefits were discussed with the patient and he would like to proceed forward with this plan of care. Patient is not on any blood thinners. I will also refill the patient's diclofenac 75 mg twice a day and provide a 1 month supply of this medication. Patient will be scheduled for a left transforaminal epidural steroid injection L3-L4 and L4-L5. All epidural injections are done under fluoroscopic guidance. Patient has been instructed to contact the clinic with any concerns before the next appointment. Dr. Gonzales has reviewed this note and agrees with this plan of care. This note was dictated using voice recognition software and make contain errors or omissions. [facility] Disclaimer: The information contained in this section may have been updated after the patient was seen, as this information can be updated by other users. Social History Smoking Status: Never smoker alcohol intake: current substance use type: denies use current occupational status: employed Travel in the last 8 weeks: None [email or web address] [facility]
[2023-04-06 15:57] VITALS: BP 146/89; PULSE 72; RESP 18; O2SAT 98; BMI 33.5
== END | disposition home or self-care (01) ==
PROVIDERS: Visit Provider Nurse Practitioner Family
DX: M51.16 Intervertebral disc disorders with radiculopathy, lumbar region (principal); M48.061 Spinal stenosis, lumbar region without neurogenic claudication; M96.1 Postlaminectomy syndrome, not elsewhere classified
CPT/HCPCS: 99212; G0463

== ENCOUNTER 2023-04-24 10:35 | Day surgery (SDC) | payer MEDICAID, SELFPAY ==
[2023-04-24 11:02] VITALS: BP 134/77; PULSE 60; RESP 16; O2SAT 97; BMI 33.5
[2023-04-24 11:14] VITALS: BP 135/54; PULSE 77; O2SAT 96
[2023-04-24 11:19] VITALS: BP 135/54; PULSE 75; O2SAT 96
[2023-04-24 11:24] VITALS: BP 154/90; PULSE 71; RESP 18; O2SAT 97
--- NOTE | 2023-04-24 11:27 | P.PCN_ITS ---
Procedure Date: 04/24/23 Time: 11:15 Anesthesiologist:: Contreras Walker CRNA Complications:: None Pre-procedure Diagnosis:: Degenerative disc lumbar spine multilevels. Lumbar radiculopathy. Lumbar postlaminectomy syndrome. Lumbar spinal stenosis. Disc bulge lumbar spine L3- 4, L4-5, L5-S1. Post-procedure Diagnosis:: Same. Indications for Procedure:: Patient is a very pleasant 53-year-old male that comes our clinic today for a left L3-4, L4-5 transforaminal epidural steroid injection. Patient is currently being treated in our office for degenerative disc lumbar spine multilevels. Lumbar radiculopathy. Lumbar postlaminectomy syndrome. Patient's main complaint is numbness and tingling in the left leg to the foot. Procedure Details:: Details of the procedure were explained to the patient. The patient was taken the procedure room placed in the prone position. The area of the lumbar spine was cleansed using chlorhexidine as a cleansing solution. At this time using fluoroscopy guidance markers were placed on the left lateral border of the L3 and L4 vertebral body. The skin and subcutaneous tissue was anesthetized using 1% lidocaine and 25-gauge needle. At this time using a 22-gauge 3-1/2 inch spinal needle the left upper one third of the L3-4 foramen was accessed. The same was done at the left L4-5 foramen. Needle positions were confirmed and a lateral view using fluoroscopy and contrast dye. At this time 1 cc of 1% lidocaine +20 mg of Depo-Medrol was injected at each level after negative aspiration. [place] were removed. Band-Aid applied. Patient tolerated the procedure without difficulty. There are no complications. Plan and Disposition:: Patient was discharged without incident.
== END 2023-04-24 11:24 | disposition home or self-care (01) ==
PROVIDERS: PCP Nurse Practitioner; Visit Provider Nurse Anesthetist, Certified Registered
DX: M51.16 Intervertebral disc disorders with radiculopathy, lumbar region (principal); M96.1 Postlaminectomy syndrome, not elsewhere classified; M48.061 Spinal stenosis, lumbar region without neurogenic claudication; M51.26 Other intervertebral disc displacement, lumbar region
CPT/HCPCS: 64483; 64484; J1030

== ENCOUNTER → 2023-05-12 12:31 | Outpatient (POV) | payer MEDICAID, SELFPAY ==
[2023-05-12 12:59] VITALS: BP 139/80; PULSE 104; RESP 18; O2SAT 95; BMI 33.5
--- NOTE | 2023-05-12 13:20 | EXP.PAIN.SOA ---
[facility] Pain Management SOAP Note Subjective:: This patient is a very pleasant 53-year-old male who comes our clinic today for follow-up visit after receiving left L3-4 and L4-5 transforaminal epidural steroid injection. Patient reports minimal to no relief from injections. Patient reports today left hip and leg radicular symptom. Minimal low back pain. Left leg feels numb at times aching at other times. He describes the left leg radicular symptom as anterior thigh including the knee. Lumbar MRI shows degenerative disc lumbar spine multilevels. Lumbar radiculopathy. Lumbar postlaminectomy syndrome. Lumbar spinal stenosis. We discussed a trial of intralaminar L3-4 epidural steroid injection. Also, we discussed surgical referral if in fact intralaminar epidural is not effective. He rates his pain 08/18. His Hermann #[id number] has been reviewed and appropriate. Patient simply takes NSAIDs as needed. Patient is very active. Objective:: Patient is awake alert [place] x 3. No acute distress. Flexion-extension lumbar spine somewhat guarded secondary to pain. Deep tendon reflexes upper lower extremities normal. Motor strength upper lower extremities normal. There is no gross sensory deficit. Gait is normal. Assessment:: Degenerative disc lumbar spine multilevels. Lumbar radiculopathy. Lumbar postlaminectomy syndrome. Lumbar spinal stenosis. Plan:: We will plan intralaminar lumbar epidural steroid injection at the L3-4 level. [facility] Disclaimer: The information contained in this section may have been updated after the patient was seen, as this information can be updated by other users. Social History Smoking Status: Never smoker alcohol intake: current substance use type: denies use current occupational status: employed Travel in the last 8 weeks: None household members: spouse housing: house current occupational exposures/hazards: No caffeine: No
== END ==
LOC: SC.PAIN 12:32
PROVIDERS: PCP Nurse Practitioner; Visit Provider Nurse Anesthetist, Certified Registered
DX: M51.16 Intervertebral disc disorders with radiculopathy, lumbar region (principal); M96.1 Postlaminectomy syndrome, not elsewhere classified; M48.061 Spinal stenosis, lumbar region without neurogenic claudication
CPT/HCPCS: 99212; G0463

== ENCOUNTER → 2023-06-05 09:56 | Outpatient (POV) | payer MEDICAID, SELFPAY ==
--- NOTE | 2023-06-05 10:48 | EXP.PAIN.SOA ---
[facility] Pain Management SOAP Note Subjective:: Patient is a pleasant 53-year-old male who presents today for follow-up of his lumbar epidural denial. We are currently treating the patient for degenerative disc disease of lumbar spine with lumbar radiculopathy symptoms, lumbar postlaminectomy syndrome. Today he rates his pain a 7 out of 10. He denies any new trauma or injury. Patient states he continues to have chronic pain in his low back that does radiate down his entire left leg. He does describe this as a toothache like sensation with numbness that does run down his entire left leg. Patient states the pain interferes with his ability to perform activities of daily living such as cooking and cleaning. Patient has tried and failed conservative therapy such as Tylenol and ibuprofen, heat and ice, topicals, chiropractor therapy for more than 15 visits and at home exercising and stretching for longer than 12 weeks. Patient did continue to go once a week to the chiropractor up until August when he stopped going due to not having any additional improvement. Patient does continue to go to the gym weekly however this is continued to not provide any additional improvement. He is currently managed with diclofenac 75 mg twice a day from her office. Patient denies any side effects from this medication. He is also prescribed compounding cream however he states he did not notice significant relief. His Hermann has been reviewed and is appropriate. Review of Systems: General: No recent weight changes, no fever, no sleep disturbances Respiratory: No cough, no shortness of air, no recurring pulmonary infections Cardiovascular/peripheral vascular: No chest pain, no palpitations, no edema, no shortness of breath Gastrointestinal: No new onset incontinence, normal bowel movements reported Genitourinary: No new onset incontinence Musculoskeletal: Low back pain, left leg pain Psychiatric: [Normal mood/affect] Neurological: [Denies weakness in extremities], [denies balance issues] Objective:: Physical Exam: General: Alert and oriented x3, no acute distress, pleasant and cooperative Lungs: Respirations even and unlabored, symmetrical chest expansion Eyes: PERRL Musculoskeletal: Flexion and extension of lumbar [spine] somewhat guarded secondary to pain, [antalgic gait noted] positive left leg raise Neurological: Speech clear, no gross sensory deficit Assessment:: Degenerative disc disease of lumbar spine with lumbar radiculopathy symptoms Plan:: Patient continues to experience significant pain in his low back and left leg with limited range of motion and a positive left leg raise. I have still discussed with the patient that I do believe he would benefit from the lumbar epidural steroid injection. Risk and benefits were discussed with the patient and he would still like to proceed forward with this option. Patient was denied this injection due to not having updated records of exercise. Patient has seen a chiropractor for several visits without any improvement and does go to the gym weekly for longer than 12 weeks with no additional relief. I have also discussed with the patient that we will send him for referral to neurosurgery for possible surgical intervention to Dr. Gaurav Griffith. Patient will be resubmitted for lumbar epidural steroid injection L3-L4 with fluoroscopy. Patient has been instructed to contact the clinic with any concerns before the next appointment. Dr. Gonzales has reviewed this note and agrees with this plan of care. This note was dictated using voice recognition software and make contain errors or omissions. [facility] Disclaimer: The information contained in this section may have been updated after the patient was seen, as this information can be updated by other users. Social History Smoking Status: Never smoker alcohol intake: current substance use type: denies use current occupational status: employed Travel in the last 8 weeks: None household members: spouse housing: house current occupational exposures/hazards: No caffeine: No
[2023-06-05 11:59] VITALS: BP 147/87; PULSE 71; RESP 18; O2SAT 96; BMI 33.5
== END ==
LOC: SC.PAIN 09:57
PROVIDERS: PCP Nurse Practitioner; Visit Provider Nurse Practitioner Family
DX: M51.16 Intervertebral disc disorders with radiculopathy, lumbar region (principal)
CPT/HCPCS: 99212; G0463

== ENCOUNTER 2023-08-10 14:45 | Outpatient (POV) | payer MEDICAID, SELFPAY ==
[2023-08-10 14:57] VITALS: BP 138/74; PULSE 82; RESP 18; O2SAT 99; BMI 34.2
--- NOTE | 2023-08-10 15:12 | A.OFFVIS_ITS ---
[facility] Pain Management SOAP Note Subjective:: Patient is a pleasant 53-year-old male who presents today for follow-up of his second lumbar epidural denial. We are currently treating the patient for degenerative disc disease of lumbar spine with lumbar radiculopathy symptoms, lumbar postlaminectomy syndrome. Today he rates his pain a 5 out of 10. He denies any new trauma or injury. He continues to have pain in his low back and entire left leg. He does describe this as a toothache like sensation with numbness that does run down his entire left leg. Patient states the pain interferes with his ability to perform activities of daily living such as cooking and cleaning. Patient was denied the injection again due to not having recent physical therapy. Patient has tried and failed conservative therapy such as Tylenol and ibuprofen, heat and ice, topicals, chiropractor therapy for more than 15 visits and at home exercising and stretching for longer than 12 weeks. Patient did continue to go once a week to the chiropractor up until August when he stopped going due to not having any additional improvement. Patient does continue to go to the gym weekly however this is continued to not provide any additional improvement. He is currently managed with diclofenac 75 mg twice a day from her office. Patient denies any side effects from this medication. He is requesting a refill of this medication as well as stating that Pat mentioned that he may benefit from gabapentin. He states he would like to try this. He is also prescribed compounding cream. His Hermann has been reviewed and is appropriate. Review of Systems: General: No recent weight changes, no fever, no sleep disturbances Respiratory: No cough, no shortness of air, no recurring pulmonary infections Cardiovascular/peripheral vascular: No chest pain, no palpitations, no edema, no shortness of breath Gastrointestinal: No new onset incontinence, normal bowel movements reported Genitourinary: No new onset incontinence Musculoskeletal: Low back pain, left leg pain Psychiatric: [Normal mood/affect] Neurological: [Denies weakness in extremities], [denies balance issues] Objective:: Physical Exam: General: Alert and oriented x3, no acute distress, pleasant and cooperative Lungs: Respirations even and unlabored, symmetrical chest expansion Eyes: PERRL Musculoskeletal: Flexion and extension of lumbar [spine] somewhat guarded secondary to pain, [antalgic gait noted] Neurological: Speech clear, no gross sensory deficit Assessment:: Degenerative disc disease of lumbar spine with lumbar radiculopathy symptoms, lumbar postlaminectomy syndrome Plan:: I will order the patient physical therapy for evaluation and treatment of his low back and leg pain. I will also refill the patient's diclofenac 75 mg twice a day and provide a 1 month supply of this medication. I will also send in a prescription of gabapentin 300 mg at bedtime. Patient does state from our last visit they did hear from [facility] Griffith office and they were not wanting additional records. They state that they did get things together however they have not heard back from this office. Patient was given the name of [facility] orthopedics with Dr. Gaurav Griffith and recommended to call for additional follow-up. Patient will return to clinic in 1 month for reevaluation of symptoms and plan of care. Patient has been instructed to contact the clinic with any concerns before the next appointment. Dr. Gonzales has reviewed this note and agrees with this plan of care. This note was dictated using voice recognition software and make contain errors or omissions. [facility] Disclaimer: The information contained in this section may have been updated after the patient was seen, as this information can be updated by other users. Social History Smoking Status: Never smoker alcohol intake: current substance use type: denies use current occupational status: other Travel in the last 8 weeks: None household members: spouse housing: house current occupational exposures/hazards: No caffeine: No
== END 2023-08-10 23:59 | disposition home or self-care (01) ==
PROVIDERS: PCP Nurse Practitioner; Visit Provider Nurse Practitioner Family
DX: M51.16 Intervertebral disc disorders with radiculopathy, lumbar region (principal); M96.1 Postlaminectomy syndrome, not elsewhere classified
CPT/HCPCS: 99212; G0463

== ENCOUNTER 2023-09-23 08:00 | Outpatient (RCR) | payer MEDICAID, SELFPAY ==
--- NOTE | 2023-08-24 12:38 | HMH.PTOPEV ---
PT Outpatient Evaluation Rehab PT Outpatient Evaluation Start: 08/24/23 10:52 Freq: Status: Active Protocol: Document 08/24/23 10:52 JOSE DANIEL (Rec: 08/24/23 12:21 JOHANNAJOSE [id number]) E-signed By Radha Latif, PT Outpatient Therapy Subjective History Subjective History This is an initial evaluation for 53 y/o male, Jarrod Collier, who presents with referral for back pain. Pt presents with c /o LBP with LLE pain/radiating pain. Pt had an epidural steroid injection on 04/24/23. Pt with previous history of back surgery from slipped disc in 2015. Pt reports pain started about a year ago. Denies trying PT in past for pain. Reports numbness and tingling from Left hip down to L toes. 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 Denies injury prior to onset of pain. Pt has tried ice, heat, OTC, traction, estim, and went to chiropractor in November. Pt reports minimal-no pain relief and progressive worsening. Pt reports he notices weakness in his L leg and occasional L knee buckling . Pt takes Gabapentin at night to help with his nerve pain. Lumbar MRI 03/24: Multilevel lumbar disc disease, most prominent at the L3-4 level with mild to moderate canal stenosis and at the L4-5 level with moderate right neuroforaminal narrowing. New diagnosis of cancer in past 12 No months? Chief Complaint Pain Symptom Type Ache,Burning,Numbness,Tingling ,Shooting Symptoms Relieved By Rest/Positioning Symptoms Aggravated By Physical Activity,Twisting Current Functional Limitations Reaching,Lifting,Housework, Driving,Sleeping,Standing, Recreation Activity,Walking Symptom Description Constant but Variable Level of pain today (0-10) 4 Pain scale - at its best (0-10) 4 Pain scale - at its worst (0-10) 8 Lumbopelvic Eval Posture Thoracic Spine Posture Standing Position Neutral Lumbar Spine Posture Standing Position Neutral Gait Observation General Gait Pattern Observation Antalgic Gait Palapation tenderness left lumbar spinal tenderness Yes: 1/4 TTP paraspinal tenderness Yes: 1/4 TTP Lumbar/Sacral Palpation Findings Tenderness Accessory Movement L3 left L4 left Range of Motion Lumbar Spine Active Flexion Range of 70 Motion (degrees) Lumbar Spine Active Extension Range of 18 Motion (degrees) Left Lumbar Spine Lateral Flexion Active 25 Range of Motion (degrees) Right Lumbar Spine Lateral Flexion 25 Active Range of Motion (degrees) Lumbar Spine ROM Limitations Soft Tissue Tightness Manual Muscle Test Left Knee Extension Strength Grade 4- Good- Knee Flexion Strength Grade 4- Good- Hip Flexion Strength Grade 4- Good- Hip Abduction Strength Grade 4- Good- Hip Adduction Strength Grade 4- Good- Hip External Rotation Strength Grade 4- Good- Hip Internal Rotation Strength Grade 4- Good- Ankle Dorsiflexion Strength Grade 4- Good- Altered Sensation LE Dermatome Level L3,L4,L5,S1,S2 Comment Diminished to light touch. Special Tests Hip Scouring (Quadrant) Test Negative Right Hip Contreras (TEENA) Test Negative Right Hip Piriformis Test Positive Left Sciatic Nerve Tension Test Positive Left Reverse Sciatic Nerve Tension Test Positive Left Crossed Straight Leg Raise Test Negative Left,Negative Right Hip Gabrielle's Test Positive Left Lumbar [place] Distraction Test/Manual Positive Traction Oswestry Index Section 1 Pain Intensity The pain comes and goes and is severe Section 2 Personal Care (Washing,Dresing) my way of washing or dressing even though it causes some pain Section 3 Lifting lifting heavy weights off the floor, but I can manage if they are Section 4 Walking I cannot walk at all without increasing pain Section 5 Sitting Pain prevents me from sitting for more than 1/2 hour Section 6 Standing I cannot stand more than 1/2 hour without increasing pain Section 7 Sleeping Because of my pain, my normal night's sleep is less than 4 hours Section 8 Social Life I hardly have any social life because of pain Section 9 Traveling Pain restricts me to short necessary journeys under 30 minutes Section 10 Changing Degreee of Pain My pain is rapidly getting worse Score and Risk Level Oswestry Sc 36 Oswestry Risk Level Completely Disabled Outpatient Therapy Assessment Impairments Problems/Impairmments Palpation Tenderness,Impaired Range of Motion,Impaired Strength,Impaired Gait Pattern ,Impaired Walking,Impaired Standing,Impaired Sitting, Impaired Driving,Impaired Lifting,Impaired Squatting, Impaired Bending,Impaired Recreational Activities, Impaired Work Activities, Subjective C/O Pain Prognosis Rehab Potential Good Comment Pt presents with chronic LBP with radiating pain. Slump test and sciatic nerve tension tests +/increased pt's primary pain. Pt would benefit from skilled OP PT services to address deficits and decrease pain. Short Term Goals Number of Weeks 3 Improve Oswestry Score Yes: Improve by 4 points (32 points) Decrease Subjective C/O Pain Yes: At worst pain at 6/10 Patient to be Ind w/ HEP Yes [facility] Goals Number of Weeks 6 Decreased Palpation Tenderness Yes: 0/4 TTP lumbar paraspinals Increase Range of Motion Yes: Lumbar ROM WNL Increase Strength Yes: LLE 5/5 strength to improve daily function Improve Oswestry Score Yes: Decrease to score reflecting Moderate disability . Decrease Subjective C/O Pain Yes: At worst 4/10 to improve QOL. Improve Self Care/Self Management Yes Patient to be Ind w/ Advanced HEP Yes Outpatient Therapy Plan of Care Treatment Plan May Include Therapeutic Exercise Including Home Yes Exercise Program Manual Therapy Techniques Yes Neuromuscular Re-education Yes Therapeutic Activities to Return to Yes Previous Functional/Work Level Gait Training Yes ADL/Self Care Education Yes Mechanical Traction Yes Dry Needling Yes Thermal Modalities Yes Electrical Stimulation Yes Ultrasound/Phonophoresis Yes Iontophoresis Yes Massage Yes Eval/Re-Eval Yes Frequency Times per week 1-2 times Duration Number of Weeks 5-6 Addendums This patient is a candidate for social No or vocational rehab? Patient/Guardian verbally acknowledges Yes understanding of treatment program and consents to further treatment? Patient/Guardian verbally acknowledges Yes understanding of diagnosis, prognosis and goals for treatment? Eval Complexity PT Charges 44644 - Moderate Complexity Shoulder/Elbow Eval Shoulder Objective Measurements Elbow Objective Measurements PHYSICIAN CERTIFICATION: I certify the specified therapy services for Jarrod Collier are required, authorized, and reviewed every 30 days.
== END 2023-09-23 09:00 | disposition home or self-care (01) ==
LOC: PT 08:00
PROVIDERS: Visit Provider Nurse Practitioner Family
DX: M54.50 Low back pain, unspecified (principal); M79.604 Pain in right leg; M79.605 Pain in left leg
CPT/HCPCS: 97012; 97110; 97140; 97163

== ENCOUNTER 2023-10-19 08:07 | Outpatient (POV) | payer MEDICAID, SELFPAY ==
[2023-10-19 08:22] VITALS: BP 124/77; PULSE 80; RESP 18; TEMP 36.7; O2SAT 99; BMI 35.4
--- NOTE | 2023-10-19 09:46 | EXP.PAIN.SOA ---
[facility] Pain Management SOAP Note Subjective:: Patient is a pleasant 53-year-old male who presents today for follow-up of physical therapy for his low back and leg symptoms. Today he rates his pain a 7 out of 10. Patient denies any new trauma or injury. He does state that the physical therapy has really aggravated his symptoms and caused a worse flare up . He does describe the pain as a tooth ache like sensation with numbness that runs down his entire left leg. Patient was denied his lumbar epidural until after having physical therapy. Patient does state that he would like to try to get this scheduled due to the continued worsening pain that is interfering with his ability perform activities of daily living such as cooking and cleaning. Patient has tried and failed oral medication, heat and ice, topicals, chiropractor visits for more than 15 sessions continued at home exercising and stretching and recent physical therapy. Patient is currently managed with diclofenac 75 mg twice a day and gabapentin 300 mg at bedtime. Patient does state that he feels like this could use additional adjustment of the bedtime dose. He is prescribed compounded cream. His Hermann has been reviewed and is appropriate. Review of Systems: General: No recent weight changes, no fever, no sleep disturbances Respiratory: No cough, no shortness of air, no recurring pulmonary infections Cardiovascular/peripheral vascular: No chest pain, no palpitations, no edema, no shortness of breath Gastrointestinal: No new onset incontinence, normal bowel movements reported Genitourinary: No new onset incontinence Musculoskeletal: Low back pain, leg pain Psychiatric: [Normal mood/affect] Neurological: [Denies weakness in extremities], [denies balance issues] Objective:: Physical Exam: General: Alert and oriented x3, no acute distress, pleasant and cooperative Lungs: Respirations even and unlabored, symmetrical chest expansion Eyes: PERRL Musculoskeletal: Flexion and extension of lumbar [spine] somewhat guarded secondary to pain, [antalgic gait noted] Neurological: Speech clear, no gross sensory deficit Assessment:: Degenerative disc disease of lumbar spine with lumbar radiculopathy symptoms, lumbar postlaminectomy syndrome Plan:: Patient is experiencing worsening pain in his low back and legs with limited range of motion and positive left leg raise. Patient does complain of increased numbness. I have discussed with patient that we can send him for referral to Dr. Yap's office to see if surgery is a future option. Patient has had recent MRI imaging that was done in March. I will also change his gabapentin to 600 mg at bedtime and refill it along with the diclofenac. Patient will be scheduled for an LESI L4-L5 under fluoroscopy. Patient has tried and failed conservative treatment including recent physical therapy and continued at home exercising and stretching Patient has been instructed to contact the clinic with any concerns before the next appointment. Dr. Gonzales has reviewed this note and agrees with this plan of care. This note was dictated using voice recognition software and make contain errors or omissions. [facility] Disclaimer: The information contained in this section may have been updated after the patient was seen, as this information can be updated by other users. Medical History No significant past medical history Family History (Updated 10/19/23 @ 08:23 by Shahla Martinez RN) Other No significant family history Social History Smoking Status: Never smoker alcohol intake: current alcohol intake frequency: holidays/special occasions only substance use type: denies use current occupational status: other Travel in the last 8 weeks: None household members: spouse housing: house current occupational exposures/hazards: No caffeine: No
== END 2023-10-19 23:59 | disposition home or self-care (01) ==
PROVIDERS: PCP Nurse Practitioner; Visit Provider Nurse Practitioner Family
DX: M51.16 Intervertebral disc disorders with radiculopathy, lumbar region (principal); M96.1 Postlaminectomy syndrome, not elsewhere classified
CPT/HCPCS: 99212; G0463

== ENCOUNTER 2023-11-03 07:47 | Day surgery (SDC) | payer MEDICAID, SELFPAY ==
[2023-11-03 08:31] VITALS: BP 146/73; PULSE 90; RESP 16; TEMP 36.7; O2SAT 98; BMI 33.5
[2023-11-03 08:45] VITALS: BP 145/83; PULSE 80; RESP 18; O2SAT 97
[2023-11-03] MEDS: methylPREDNISolone ACETATE 80MG/ML VIAL 80 MG (08:45)
[2023-11-03 08:46] VITALS: BP 145/83; PULSE 80; RESP 18; O2SAT 97
--- NOTE | 2023-11-03 08:56 | EXP.PAIN.PRO ---
Procedure Date: 11/03/23 Time: 08:30 Anesthesiologist:: Contreras Walker CRNA Complications:: None Pre-procedure Diagnosis:: Degenerative disc lumbar spine multilevels. Lumbar radiculopathy. Lumbar disc bulge L4-5, L5-S1. Lumbar postlaminectomy syndrome. Post-procedure Diagnosis:: Same. Indications for Procedure:: Patient is a very pleasant 53-year-old male comes our clinic today for a lumbar epidural steroid injection at the L4-5 level. Patient is status post lumbar discectomy laminectomy L4-5 in 2016. Today he describes his pain as constant, dull, aching in the lumbar spine as well as bilateral hip and leg radicular symptoms at times. He rates his pain 7/10. Procedure Details:: Procedure: Lumbar epidural steroid injection under fluoroscopy Informed consent was obtained and the risks and benefits of the procedure were explained to the patient. The patient was taken to the procedure room and noninvasive monitors placed, including noninvasive blood pressure cuff and pulse oximeter. The back was viewed using C-arm Fluoroscopy and prepped using Chloraprep as a cleansing solution and the L4-L5 interspace was palpated. Skin and subcutaneous tissues were anesthetized using lidocaine 1.5% and a 25-gauge needle. After this, an 18-gauge Touhy epidural needle was placed into the L4-L5 interspace and advanced using fluoroscopic guidance and loss of resistance to air until the epidural space was encountered. After confirmation of needle placement in the epidural space, with dye, a solution containing normal saline, 3 mL and Depo-Medrol 80 mg were incrementally injected into the lumbar epidural space. The patient tolerated the procedure well with no complications. The patient was observed in the Pain Clinic and then discharged home neurologically intact. Plan and Disposition:: Patient was discharged without incident.
[2023-11-03 08:58] VITALS: BP 138/74; PULSE 67; RESP 18; O2SAT 97
== END 2023-11-03 08:56 | disposition home or self-care (01) ==
PROVIDERS: PCP Nurse Practitioner; Visit Provider Nurse Anesthetist, Certified Registered
DX: M54.16 Radiculopathy, lumbar region (principal)
CPT/HCPCS: 62323; J1010